=== PATIENT | male | born 2000 | race Two or more races ===

== ENCOUNTER 2019-02-07 09:57 | Emergency (ER) | payer OTHER ==
[~2019-02-07] VITALS: Ht 172.7 cm; Wt 72.6 kg
[2019-02-07] MEDS ORDERED: CLARITIN10 MG (10:17)
== END 2019-02-07 10:48 | disposition home or self-care (01) ==
LOC: ER 09:57
DX: S80.871A Other superficial bite, right lower leg, initial encounter (principal); L08.9 Local infection of the skin and subcutaneous tissue, unspecified; W57.XXXA Bitten or stung by nonvenomous insect and other nonvenomous arthropods, initial encounter; Y93.89 Activity, other specified; Y92.832 Beach as the place of occurrence of the external cause; Y99.8 Other external cause status